=== PATIENT | female | born 1990 | race African-American/Black ===

== ENCOUNTER 2017-05-01 21:16 | Emergency (ER) | payer SELFPAY ==
[~2017-05-01] VITALS: Ht 160 cm; Wt 65.0 kg
[~2017-05-01 21:16] MED LIST: IBUP600T26 PO; METR250 PO; Z.0.NO CURRENT MEDS
[2017-05-01 21:36] VITALS: BP 123/87; PULSE 98; RESP 16; TEMP 100.7; O2SAT 99
[2017-05-01 22:30] LABS: AUTOMATED NEUTROPHIL # 5.6 TH/MM3 (1.8-7.7); BASOPHIL % 0.3 % (0.0-2.0); EOSINOPHIL % 0.2 % (0.0-4.0); HEMATOCRIT 35.8 % (35.0-46.0); HEMOGLOBIN 12.2 GM/DL (11.6-15.3); LYMPH % 13.8 % (9.0-44.0); LYMPHOCYTE # 1.1 TH/MM3 (1.0-4.8); MEAN CELL VOLUME 85.9 FL (80.0-100.0); MEAN CORPUSCULAR HEMOGLOBIN 29.4 PG (27.0-34.0); MEAN CORPUSCULAR HGB CONC 34.2 % (32.0-36.0); MEAN PLATELET VOLUME 6.9 FL (7.0-11.0); MONO % 11.8 % (0.0-8.0); MONOCYTE # 0.9 TH/MM3 (0-0.9); NEUT % 73.9 % (16.0-70.0); PLATELET COUNT 268 TH/MM3 (150-450); RED BLOOD COUNT 4.16 MIL/MM3 (4.00-5.30); RED CELL DISTRIBUTION WIDTH 12.9 % (11.6-17.2); WHITE BLOOD COUNT 7.6 TH/MM3 (4.0-11.0)
[2017-05-01 23:26] LABS: BICARBONATE 26.8 MEQ/L (21.0-32.0); BLOOD UREA NITROGEN 9 MG/DL (7-18); CALCIUM 9.1 MG/DL (8.5-10.1); CHLORIDE 100 MEQ/L (98-107); CREATININE 0.86 MG/DL (0.50-1.00); GLOMERULAR FILTRATION RATE 95 ML/MIN (>89); GLUCOSE,RANDOM 95 MG/DL (74-106); SODIUM (NA) 134 MEQ/L (136-145); TROPONIN I LESS THAN 0.02 NG/ML (0.02-0.05)
[2017-05-01] MEDS ORDERED: POTASSIUM CHLORIDE 20 MEQ CONTROLLED RELEASE TAB PO ONE (23:45)
[2017-05-01] MEDS ORDERED: SODIUM CHLOR 0.9% 1000 ML INJ 1,000 ML IV ONE (23:45)
[2017-05-01] MEDS ORDERED: ONDANSETRON HCL 4 MG/2 ML VIAL IV PUSH ONE (23:45)
[2017-05-01] MEDS ORDERED: ACETAMINOPHEN 325 MG TAB PO ONE (23:45)
[2017-05-02 00:08] LABS: BILIRUBIN, URINE NEG (NEG); BLOOD, URINE TRACE (NEG); GLUCOSE,URINE NEG (NEG); KETONE, URINE NEG (NEG); NITRITE,URINE NEG (NEG); SQUAMOUS EPITHELIAL CELL URINE 1 /hpf (0-5); URINE COLOR LIGHT-YELLOW (YELLW/STRAW); URINE LEUKOCYTE ESTERASE NEG (NEG)
--- NOTE | 2017-05-02 00:22 | PD ---
HPI Chief Complaint: Dizziness Time Seen by Provider: 23:34 Travel History International Travel<30 days: No Contact w/Intl Traveler<30days: No Traveled to known affect area: No History of Present Illness HPI 26-year-old female came to the emergency room with history of headache, dizziness, pressure behind her eyes, nausea and vomiting. Patient says most of her symptoms have been going on for 1 day for the nausea and vomiting has been going on for past 1 week. She had a sick contact in the family. Her brother was sick. Patient had a temperature of 100.7 in triage. There was a urine test done which was positive. Patient says her last menstrual cycle was in the beginning of March. She is usually regular with her menstruation. She is otherwise a healthy person. Patient is A1. No spotting or cramping PFSH Past Medical History Narrative Medical List of her past medical, surgical, social and family history reviewed from the nursing note. Medical History: Denies Significant Hx Diminished Hearing: No Tetanus Vaccination: Unknown Influenza Vaccination: No ?: Unknown LMP: 03/16/2017 Past Surgical History Surgical History: No Previous Surgery Social History Alcohol Use: No Tobacco Use: No Substance Use: No Allergies-Medications (Allergen,Severity, Reaction): Coded Allergies: No Known Allergies (Verified Adverse Reaction, Unknown, 05/01/17) Comments No known drug allergies. Reported Meds & Prescriptions Reported Meds & Active Scripts Active ( Vit-Ferrous Fumarate) 27 Mg Iron-1 Mg Tab 1 Tab PO DAILY Ibuprofen 600 Mg Tab 600 Mg PO Q6HPRN Flagyl (Metronidazole) 250 Mg Tab 500 Mg PO TID Reported No Current Meds (Miscellaneous Medication) Misc Narrative Medication List of her home medications reviewed from the nursing note. Review of Systems Except as stated in HPI: all other systems reviewed are Neg General / Constitutional: Positive: Fever Gastrointestinal: Positive: Nausea, Vomiting Musculoskeletal: Positive: Myalgias Neurologic: Positive: Dizziness, Headache Physical Exam Narrative GENERAL: Awake, alert, mild distress SKIN: Focused skin assessment warm/dry. HEAD: Atraumatic. Normocephalic. EYES: Pupils equal and round. No scleral icterus. No injection or drainage. ENT: No nasal bleeding or discharge. Mucous membranes pink and moist. NECK: Trachea midline. No JVD. Neck is supple, no meningismus CARDIOVASCULAR: Regular rate and rhythm. No murmur appreciated. RESPIRATORY: No accessory muscle use. Clear to auscultation. Breath sounds equal bilaterally. GASTROINTESTINAL: Abdomen soft, non-tender, nondistended. Hepatic and splenic margins not palpable. MUSCULOSKELETAL: No obvious deformities. No clubbing. No cyanosis. No edema. NEUROLOGICAL: Awake and alert. No obvious cranial nerve deficits. Motor grossly within normal limits. Normal speech. PSYCHIATRIC: Appropriate mood and affect; insight and judgment normal. Data Data Last Documented VS Orders Orders Electrocardiogram (05/01/17 21:40) Complete Blood Count With Diff (05/01/17 21:40) Basic Metabolic Panel (Bmp) (05/01/17 21:40) Ckmb (Isoenzyme) Profile (05/01/17 21:40) Troponin I (05/01/17 21:40) Iv Access Insert/Monitor (05/01/17 21:40) Ecg Monitoring (05/01/17 21:40) Oxygen Administration (05/01/17:40) Oximetry (05/01/17 21:40) CKMB% (05/01/17 21:55) CKMB (05/01/17 21:55) Ed Urine Pregnancytest Poc (05/01/17 23:34) Sodium Chlor 0.9% 1000 Ml Inj (Ns 1000 M (05/01/17 23:45) Potassium Chloride (Kcl) (05/01/17 23:45) Ondansetron Inj (Zofran Inj) (05/01/17 23:45) Urinalysis - C+S If Indicated (05/01/17 23:34) Acetaminophen (Tylenol) (05/01/17 23:45) Blood Culture (05/01/17 23:37) Influenzae A/B Antigen (05/01/17 23:37) Ed Discharge Order (05/02/17 01:10) Labs Laboratory Tests Test 05/01/17 21:55 05/01/17 23:53 White Blood Count 7.6 TH/MM3 Red Blood Count 4.16 MIL/MM3 Hemoglobin 12.2 GM/DL Hematocrit 35.8 % Mean Corpuscular Volume 85.9 FL Mean Corpuscular Hemoglobin 29.4 PG Mean Corpuscular Hemoglobin Concent 34.2 % Red Cell Distribution Width 12.9 % Platelet Count 268 TH/MM3 Mean Platelet Volume 6.9 FL Neutrophils (%) (Auto) 73.9 % Lymphocytes (%) (Auto) 13.8 % Monocytes (%) (Auto) 11.8 % Eosinophils (%) (Auto) 0.2 % Basophils (%) (Auto) 0.3 % Neutrophils # (Auto) 5.6 TH/MM3 Lymphocytes # (Auto) 1.1 TH/MM3 Monocytes # (Auto) 0.9 TH/MM3 Eosinophils # (Auto) 0.0 TH/MM3 Basophils # (Auto) 0.0 TH/MM3 CBC Comment DIFF FINAL Differential Comment Blood Urea Nitrogen 9 MG/DL Creatinine 0.86 MG/DL Random Glucose 95 MG/DL Calcium Level 9.1 MG/DL Sodium Level 134 MEQ/L Potassium Level 3.3 MEQ/L Chloride Level 100 MEQ/L Carbon Dioxide Level 26.8 MEQ/L Anion Gap 7 MEQ/L Estimat Glomerular Filtration Rate 95 ML/MIN Total Creatine Kinase 116 U/L Creatine Kinase MB LESS THAN 0.5 NG/ML Troponin I LESS THAN 0.02 NG/ML Urine Color LIGHT-YELLOW Urine Turbidity CLEAR Urine pH 6.0 Urine Specific [place] 1.007 Urine Protein NEG mg/dL Urine Glucose (UA) NEG mg/dL Urine Ketones NEG mg/dL Urine Occult Blood TRACE Urine Nitrite NEG Urine Bilirubin NEG Urine Urobilinogen LESS THAN 2.0 MG/DL Urine Leukocyte Esterase NEG Urine RBC 1 /hpf Urine Squamous Epithelial Cells 1 /hpf Microscopic Urinalysis Comment CULT NOT INDICATED MDM Medical Decision Making Medical Screen Exam Complete: Yes Emergency Medical Condition: Yes Medical Record Reviewed: Yes Interpretation(s) Twelve-lead EKG was reviewed by me. Normal sinus rhythm, normal axis, nonspecific ST-T wave changes. Heart rate of 96 bpm. Differential Diagnosis , UTI, influenza, viral illness Narrative Course 1:07 AM blood test results are within acceptable limit except for her potassium that slightly low. I gave her. Replacement. Patient was given 1 L of IV fluid bolus. UA is negative for UTI. Given her status lung sounds otherwise clear with no cough I have decided not to do an x-ray of her chest. Patient will be discharged home with vitamin prescription and instructions. I verbally explained instructions to her and she understands. Procedures EKG Prior to Arrival: No Diagnosis Primary Impression: Fever Qualified Codes: R50.9 - Fever, unspecified Additional Impressions: Viral illness First trimester Referrals: Primary Care Physician Additional Instructions: Please get an FREEZER ASSISTANT to follow up for the . Take the medication as per the prescription direction. Take Tylenol for the fever. Drink lots of fluids to stay hydrated. Return to the ER if condition worsens or any other new concerns. Med/Other Pt SpecificInfo: Prescription(s) given Scripts Vit-Ferrous Fumarate () 27 Mg Iron-1 Mg Tab 1 TAB PO DAILY for Nutritional Supplement, #30 TAB 0 Refills Prov: Kannan Mae MD 05/02/17 Disposition: 01 DISCHARGE HOME Condition: Stable Kannan Mae MD May 02, 2017 00:22
[2017-05-02] MEDS ORDERED: TRICTAB PO (01:09)
[2017-05-02 01:11] VITALS: BP 110/76; PULSE 72; RESP 16; TEMP 98.1; O2SAT 99
--- NOTE | 2017-05-02 08:45 | EKG ---
Date Performed: 05/01/2017 Time Performed: 21:47:57 PTAGE: 26 years EKG: Sinus rhythm NONSPECIFIC T-WAVE ABNORMALITY BORDERLINE ECG PREVIOUS TRACING : 04/24/2009 09.43 Compared to previous tracing, sinus rhythm has replaced ect opic atrial rhythm. DOCTOR: Rishi Robert Interpretating Date/Time 05/02/2017 08:30:03
== END 2017-05-02 01:39 | disposition home or self-care (01) ==
LOC: NEPE 21:16
DX: O98.519 Other viral diseases complicating pregnancy, unspecified trimester (principal); B34.9 Viral infection, unspecified; Z79.899 Other long term (current) drug therapy
CPT/HCPCS: 80048; 81001; 82550; 82552; 84484; 84703; 85025; 87040; 87804; 93005; 96361; 96374; 99284; J2405; J7030

== ENCOUNTER 2017-05-31 21:58 | Emergency (ER) | payer OTHER ==
[~2017-05-31] VITALS: Ht 160 cm; Wt 70.7 kg
[~2017-05-31 21:58] MED LIST changes: +TRICTAB PO
[2017-05-31 22:02] VITALS: BP 127/63; PULSE 91; RESP 16; TEMP 98.1; O2SAT 100
[2017-05-31 22:23] LABS: BILIRUBIN, URINE NEG (NEG); BLOOD, URINE SMALL (NEG); GLUCOSE,URINE NEG (NEG); KETONE, URINE NEG (NEG); NITRITE,URINE NEG (NEG); URINE COLOR YELLOW (YELLW/STRAW); URINE LEUKOCYTE ESTERASE SMALL (NEG)
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
[2017-06-01 00:35] VITALS: BP 110/62; PULSE 76; RESP 16; O2SAT 98
== END 2017-06-01 00:52 | disposition home or self-care (01) ==
LOC: PHED 21:58
DX: O20.9 Hemorrhage in early pregnancy, unspecified (principal); Z3A.00 Weeks of gestation of pregnancy not specified
CPT/HCPCS: 81001; 84703; 86901; 99284